=== PATIENT | male | born 2000 | race Caucasian/White ===

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

== ENCOUNTER 2019-03-27 19:44 | Emergency (ER) | payer SELFPAY ==
[~2019-03-27] VITALS: Ht 172.7 cm; Wt 55.7 kg
[2019-03-27 19:54] VITALS: Ht 172.7 cm; Wt 55.7 kg
[2019-03-27] MEDS ORDERED: LIDOCAINE 1% (MDV) 10 ML INJ INJ STA (20:16)
[2019-03-27] MEDS ORDERED: DIPHTH/TET/ACEL PERTUSS (ADULT) 0.5 ML VIAL IM* ONE (20:30)
[2019-03-27] MEDS ORDERED: SULF1TAB31 PO (20:39)
[2019-03-27] MEDS ORDERED: CEPH-443 PO (20:39)
[2019-03-27] MEDS ORDERED: HYDR-4011 PO (20:39)
--- NOTE | 2019-03-27 20:50 | ERD ---
ER Documentation Chief Complaint Chief Complaint Pt reports laceration to L index finger HPI This is a 18-year-old male with a nonsignificant past medical history presents to ED with laceration to dorsal second digit. Patient states that he was chopping food at work with a knife and accidentally cut the left second digit. Admits to painful range of motion decreased range of motion due to the pain. Denies tingling, numbness, lack sensation. Unsure when last tetanus was. No known drug allergies ROS All systems reviewed and are negative except as per history of present illness. Medications Home Meds Active Scripts Cephalexin* (Keflex*) 500 Mg Capsule, 500 MG PO QID for 7 Days, CAP Prov:NENA SMITH PA-C 03/27/19 Sulfamethoxazole/Trimethoprim* (Bactrim Ds* Tablet) 1 Each Tablet, 1 TAB PO BID, #14 TAB Prov:NENA SMITH PA-C 03/27/19 Hydrocodone/Acetaminophen ([place] 5-325 Tablet) 1 Each Tablet, 1 TAB PO Q6H PRN for PAIN, #5 TAB Prov:NENA SMITH PA-C 03/27/19 Cephalexin* (Keflex*) 500 Mg Capsule, 500 MG PO Q8, #21 CAP Prov:PONCE AMIN MD 11/02/18 Acetaminophen* (Tylenol*) 325 Mg Tablet, 650 MG PO Q6H PRN for PAIN LEVEL 1-3 OR FEVER for 10 Days, TAB Prov:PONCE AMIN MD 11/01/18 Docusate Sodium (Dok) 100 Mg Capsule, 100 MG PO Q12H PRN for CONSTIPATION for 5 Days, CAP Prov:PONCE AMIN MD 11/01/18 Oxycodone HCl/Acetaminophen (Oxycodone-Acetaminophen 5-325) 1 Each Tablet, 1 TAB PO Q4H PRN for PAIN LEVEL 1-3 OR FEVER for 5 Days, TAB Prov:PONCE AMIN MD 11/01/18 Allergies Allergies: Coded Allergies: No Known Allergy (Unverified , 11/09/18) PMhx/Soc History of Surgery: Yes (appendectomy ) Anesthesia Reaction: No Hx Neurological Disorder: No Hx Respiratory Disorders: No Hx Cardiac Disorders: No Hx Psychiatric Problems: No Hx Miscellaneous Medical Probl: No Hx Alcohol Use: No Hx Substance Use: No Hx Tobacco Use: No Smoking Status: Never smoker FmHx Family History: No diabetes Physical Exam Vitals Vital Signs Date Temp Pulse Resp B/P (MAP) Pulse Ox O2 O2 Flow FiO2 Time Delivery Rate 03/27/19 99.0 67 16 114/70 97 19:54 (85) Physical Exam Physical Exam Vitals signs: Reviewed by me. General: Well developed, well nourished, in no acute distress. Patient is awake and alert. Head: Normocephalic, atraumatic. Eyes: Normal conjunctiva, Pupils PERRLA, EOM intact grossly ENT: Pharynx is clear, Moist mucous membranes, external ears, nose and mouth normal Neck: Supple, no masses, lymphadenopathy or JVD Respiratory: Clear to auscultation bilaterally with no wheezing, rhonchi, rales, no distress Cardiovascular: RRR, no murmurs, rubs, or gallops MSK: No edema, no unilateral swelling, 5/5 strength Upper Extremity - left Skin: 2.5 cm laceration to patient's dorsal left second digit proximally, extensor tendon is exposed and partially lacerated Compartments: Soft Motor: Full active range of motion shoulder/elbow/wrist/hand/fingers, has full range of extension and flexion of the left second digit Sensation: Intact shoulder/pinky/middle finger/thumb web space Bones: Nontender humerus/elbow/forearm/wrist/hand Snuffbox: Nontender Joints: No effusion Pulses/Perfusion: 2+ radial, Capillary refill < 2 seconds Radial ulnar and median nerve tested for sensory motor function without deficit, Back: No midline tenderness. Neurologic: Alert and oriented, moving all extremities, normal speech, no focal weakness, no cerebellar signs. Normal mentation Skin: warm and dry, No rash Psych: Normal mood Results 24 hrs Current Medications Medications Dose Sig/Maribell Start Time Status Last (Trade) Ordered Route PRN Stop Time Admin Dose Reason Admin Diphtheria/ 0.5 ml ONCE ONCE 03/27/19 DC 03/27/19 Tetanus/Acell IM* 20:30 20:28 Pertussis 03/27/19 20:31 (Adacel) Lidocaine 10 ml ONCE STAT 03/27/19 DC HCl INJ 20:16 (Lidocaine 03/27/19 20:17 1% (Mdv) 10 ml) Procedures/MDM EKG, MONITORS, & DIAGNOSTIC IMAGING: imaging reviewed by me PROCEDURES: Laceration Repair by me: Anesthesia: 1% lidocainelocally Location: Left second digit Tendon/Joint/Nerves: Extensor tendon partially lacerated Foreign body: None detected after copious irrigation and exploration Technique: 5 Simple Interrupted Sutures Complexity: No subcutaneous sutures/mucosal repair/edge excision Post Closure Length: 2.5 cm Patient's bleeding was easily controlled in the department and there is no indication of anemia. No evidence of compartment syndrome, neurologic injury, vascular injury, open joint, , or foreign body. Patient is appropriate for outpatient follow up. 48 hour wound check. Scar minimization instructions given. ER COURSE: The patient was stable throughout ED course. I kept the patient and/or family informed of laboratory and diagnostic imaging r esults throughout the emergency room course. The patient was promptly evaluated and a treatment plan was devised based on H&P and other data. This plan was discussed with the patient who agreed and had no further questions or concerns prior to discharge. MEDICAL DECISION MAKIN-year-old male presents ED with laceration of the left second digit. The extensor tendon is partially lacerated. Patient has full range of motion with extension and flexion of the finger. X-rays were performed. Laceration was repaired in ED and instructions for post care were discussed. Patient was placed in a aluinun finger splint to keep finger in extension and prevent further injury to finger. Patient was advised to go to [facility] to see a hand specialist regarding the partial tendon laceration. The importance of seeing a hand specialist with stressed to patient - advised to go in next 24 hours. discussed with overseeing physician and he agrees with plan. No evidence of compartment syndrome, neurologic injury, vascular injury, open joint,, fracture, dislocation, or foreign body. Patient's vitals are stable and pt can be managed with close out patient follow up. Advised patient to return to ED or to be seen by primary care for a 48 hour wound check. Pt will also need to return to ED or be seen by primary care provider to have sutures removed in 12 days. Return to ED with any worsening symptoms DISPOSITION PLAN: We discussed follow up with the patient's primary care doctor within 24 to 48 hours. Patient counseled regarding my diagnostic impression and care plan. Prior to discharge all questions answered. Pt agrees with treatment plan and understands strict return precautions. Precautionary instructions provided including instructions to return to the ER if not improving or for any worsening or changing symptoms or concerns. SPECIALIST FOLLOW UP RECOMMENDED: hand specialist/[facility] Patient has been advised to follow up with primary care in 1-2 days. Disclaimer: Inadvertent spelling and grammatical errors are likely due to EHR/dictation software use and do not reflect on the overall quality of patient care. Also, please note that the electronic time recorded on this note does not necessarily reflect the actual time of the patient encounter. Departure Diagnosis: Primary Impression: Laceration of finger of left hand Encounter type: initial encounter Finger: index finger Damage to nail status: without damage Foreign body presence: without foreign body Qualified Codes: S61.211A - Laceration without foreign body of left index finger without damage to nail, initial encounter Additional Impression: Extensor tendon laceration, finger, open wound Encounter type: initial encounter Qualified Codes: S56.429A - Laceration of extensor muscle, fascia and tendon of unspecified finger at forearm level, initial encounter; S61.209A - Unspecified open wound of unspecified finger without damage to nail, initial encounter Condition: Stable Patient Instructions: Laceration, Extrem (Suture, Staple, Or Tape), Laceration, Tendon Referrals: [facility] Additional Instructions: Patient advised to follow-up with hand specialist in the next 24 hours. Patient was [facility]. Patient will also need to have a wound check in 48 hours. Patient advised to return to the ED immediately for new or worsening symptoms. Patient advised to follow up with primary care provider in the next 24-48 hours. Patient verbalized understanding and agrees with treatment plan and course of action. If patient has no primary care they may follow up with one of the community clinics listed on the following page or one of the options listed below [facility] + [facility] [address] [place] [address] or [facility] [address] [place] [address] or [facility] [address] [place] [address] NENA SMITH PA-C March 27, 2019 20:50
[2019-03-27 22:35] VITALS: BP 119/67; PULSE 65; RESP 16
== END 2019-03-27 22:35 | disposition home or self-care (01) ==
LOC: FTE 19:44
DX: S56.422A Laceration of extensor muscle, fascia and tendon of left index finger at forearm level, initial encounter (principal); W26.0XXA Contact with knife, initial encounter; Y92.89 Other specified places as the place of occurrence of the external cause; Z23 Encounter for immunization
CPT/HCPCS: 73140; 90471; 90715

== ENCOUNTER 2019-04-12 12:53 | Emergency (ER) | payer SELFPAY ==
[~2019-04-12] VITALS: Wt 55.0 kg
[~2019-04-12 12:53] MED LIST changes: +HYDR-4011 PO; +SULF1TAB31 PO
[2019-04-12 12:56] VITALS: BP 110/58; PULSE 58; RESP 18
--- NOTE | 2019-04-12 13:08 | ERD ---
ER Documentation Chief Complaint Chief Complaint LEFT INDEX SUTURE REMOVAL HPI 18-year-old male, presents to the emergency department, for stitches removal of the left index finger. The patient refers feeling better, no active bleeding, no distal numbness, weakness or tingling, no fever or chills. Per patient, he is ready to go back to work without restrictions. ROS All systems reviewed and are negative except as per history of present illness. Medications Home Meds Active Scripts Cephalexin* (Keflex*) 500 Mg Capsule, 500 MG PO QID for 7 Days, CAP Prov:NENA SMITH PA-C 03/27/19 Sulfamethoxazole/Trimethoprim* (Bactrim Ds* Tablet) 1 Each Tablet, 1 TAB PO BID, #14 TAB Prov:NENA SMITH PA-C 03/27/19 Hydrocodone/Acetaminophen ([place] 5-325 Tablet) 1 Each Tablet, 1 TAB PO Q6H PRN for PAIN, #5 TAB Prov:NENA SMITH PA-C 03/27/19 Cephalexin* (Keflex*) 500 Mg Capsule, 500 MG PO Q8, #21 CAP Prov:PONCE AMIN MD 11/02/18 Acetaminophen* (Tylenol*) 325 Mg Tablet, 650 MG PO Q6H PRN for PAIN LEVEL 1-3 OR FEVER for 10 Days, TAB Prov:PONCE AMIN MD 11/01/18 Docusate Sodium (Dok) 100 Mg Capsule, 100 MG PO Q12H PRN for CONSTIPATION for 5 Days, CAP Prov:PONCE AMIN MD 11/01/18 Oxycodone HCl/Acetaminophen (Oxycodone-Acetaminophen 5-325) 1 Each Tablet, 1 TAB PO Q4H PRN for PAIN LEVEL 1-3 OR FEVER for 5 Days, TAB Prov:PONCE AMIN MD 11/01/18 Allergies Allergies: Coded Allergies: No Known Allergy (Unverified , 11/09/18) PMhx/Soc Medical and Surgical Hx: pt denies Medical Hx History of Surgery: Yes (appendectomy ) Anesthesia Reaction: No Hx Neurological Disorder: No Hx Respiratory Disorders: No Hx Cardiac Disorders: No Hx Psychiatric Problems: No Hx Miscellaneous Medical Probl: No Hx Alcohol Use: No Hx Substance Use: No Hx Tobacco Use: No Smoking Status: Never smoker FmHx Family History: No diabetes, No coronary disease Physical Exam Vitals Vital Signs Date Temp Pulse Resp B/P (MAP) Pulse Ox O2 O2 Flow FiO2 Time Delivery Rate 04/12/19 98.5 58 18 110/58 99 12:56 (75) Physical Exam Const: No acute distress Head: Atraumatic Eyes: Normal Conjunctiva ENT: Normal External Ears, Nose and Mouth. Neck: Full range of motion. No meningismus. Resp: Clear to auscultation bilaterally Cardio: Regular rate and rhythm, no murmurs Abd: Soft, non tender, non distended. Normal bowel sounds Skin: No petechiae or rashes Back: No midline or flank tenderness Ext: Left index finger: 3 cm linear laceration in the dorsal aspect of the proximal phalanx, stitches in place, dry, clean and intact. No cyanosis, or edema Neur: Awake and alert Psych: Normal Mood and Affect Procedures/MDM Status post laceration repair. Adequate pain control, no fever, no chills, good compliance with medications no side effects. The patient was evaluated for infection and neurovascular compromise. Stitches removed without complications. Patient is stable, with adequate healing process, okay to discharge home. The patient was instructed to follow up with the primary care provider in the next 48h. If symptoms persist, worsen or new symptoms develop, then patient should return to the ED immediately. Instructions explained and given directly by me to the patient with acknowledgment and demonstrated understanding. Disclaimer: Inadvertent spelling and grammatical errors are likely due to EHR/dictation software use and do not reflect on the overall quality of patient care. Also, please note that the electronic time recorded on this note does not necessarily reflect the actual time of the patient encounter. Departure Diagnosis: Primary Impression: Encounter for removal of sutures Condition: Stable Patient Instructions: Suture Removal, No Complication Additional Instructions: Muchas pete por [facility] para alas servicio. Esperamos que en alas visita a la grey de emergencia alas problema medico haya sido solucionado y que se sienta mucho mejor. Para estar seguros que alas mejoria sigue en proceso, le pedimos el favor de hacer shashi yung de seguimiento medico con alas doctor primario en los proximos 2-4 valero. Lleve con usted estos documentos y las medicinas recetadas. Si nora sintomas empeoran, NO SE ESPERE, por favor regrese a grey de emergencia INMEDIATAMENTE. En merlyn que usted no tenga un mdico de atencin primaria: Llame al mdico o clnica comunitaria de referencia que aparece abajo paola las horas de consultorio para hacer shashi yung para que le vean. CLINICAS: [facility] [phone] [address] [facility] [phone] [address] [facility] [phone] [facility] [phone] [address] [place] [id number] [phone] [facility] [phone] BUSHRA GUPTA MD Apr 12, 2019 13:08
== END 2019-04-12 13:45 | disposition home or self-care (01) ==
LOC: FTE 12:53
DX: Z48.02 Encounter for removal of sutures (principal)
CPT/HCPCS: 99281